=== PATIENT | female | born 2005 | race Caucasian/White ===

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

== ENCOUNTER 2025-04-25 08:06 | Emergency (ER) | payer SELFPAY ==
--- OUTSIDE RECORDS SUMMARY | 2025-04-25 08:11 | XMS_ITS | Encounter Summary ---
Author Organization [facility] Address [address] [place] [address] Care Team Providers Care Maintenance Technician 3Rd Shift Name Role Phone Chinyere Meyers DO Primary Care Provider Encounter Details Date Type Department Care Team (Late st Contact Info) Description 04/23/2025 External Device Data [facility] ABSTRACTION Provider, Abstract NO ADDRESS ON FILE Social History Tobacco Use Types Packs/Day Years Used Date Smoking Tobacco: Never Passive Smoke Exposure: Never Smokeless Tobacco: Never Alcohol Use Standard Drinks/Week Comments Never 0 (1 standard drink = 0.6 oz pur e alcohol) Comments No Sex and Gender Information Value Date Recorded Sex Assigned at Not on file 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
--- OUTSIDE RECORDS SUMMARY | 2025-04-25 08:11 | XMS_ITS | Encounter Summary ---
Author Organization [facility] Address [address] [place] [address] Care Team Providers Care Bus Monitor Name Role Phone Chinyere Meyers DO Primary Care Provider Encounter Details Date Type Department Care Team (Late st Contact Info) Description 03/11/2025 Results Follow-Up [facility] Medicine [place] [address] [place] [address] Leonel Mohan FNP [address] [place] [address] HCG QUALITATIVE, BLOOD Social History Tobacco Use Types Packs/Day Years Used Date Smoking Tobacco: Never Smokeless Tobacco: Never Alcohol Use Standard Drinks/Week Comments Never 0 (1 standard drink = 0.6 oz pur e alcohol) Comments No Sex and Gender Information Value Date Recorded Sex Assigned at Not on file 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
--- OUTSIDE RECORDS SUMMARY | 2025-04-25 08:11 | XMS_ITS | Clinical Summary ---
Author Organization [facility] Address [address] [place] [address] Care Team Providers Care Sprinkler Repair Technician Name Role Phone Chinyere Meyers Primary Care Provider [phone] Allergies No known active allergies Medications medroxyPROGEST ERone (DEPO-PROVERA) 150 mg/mL Suspension Inject 150 mg by intramuscular injection every 90 days. Active naproxen (NAPROSYN) 250 mg tabletIndicati ons:Dysmenorrh ea Take 1 Tablet (250 mg) by mouth every 8 hours as needed for Pain, Mild. 60 Tablet 1 Active Active Problems No known active problems Encounters Date Type Department Care Team Description 04/23/2025 External Device Data [facility] Provider, Abstract 04/15/2025 8:40 AM CDT Office Visit [facility] [address] [place] [address] TheresaOctober, [employer] Depression, unspecified depression type (Primary Dx); Dysmenorrhea 03/19/2025 External Device Data [facility]STRA[facility] Provider, Abstract 03/14/2025 10:40 AM CDT Office Visit [facility] [address] [place] [address] TheresaOctober, [employer] Dysmenorrhea (Primary Dx); General counseling and advice on contraceptive management 03/12/2025 External Device Data [facility]STRACTION Provider, Abstract 03/12/2025 External Device Data [facility] Provider, Abstract 03/12/2025 External Device Data [facility]STRA[facility] Provider, Abstract 03/11/2025 Results Follow-Up [facility] [address] [place] [address] Leonel Mohan FNP HCG QUALITATIVE, BLOOD 03/11/2025 Telephone [facility] [address] [place] [phone] Leonel Mohan FNP Remote Monitoring ; Patient Communication 03/08/2025 11:20 AM CDT Office Visit [facility] [address] [place] [phone] Leonel Mohan FNP Encounter for test, result unknown (Primary Dx); Nausea and vomiting, unspecified vomiting type; On Depo-Provera for contraception from Last 3 Months Immunizations Immunization Administration Dates Next Due (MENACTRA)(9 [...] Passive Smoke Exposure: Never Smokeless Tobacco: Never Tobacco Cessation:Counseling Given: No Alcohol Use Standard Drinks/Week Comments Never 0 (1 standard drink = 0.6 oz pur e alcohol) Comments No Sex and Gender Information Value Date Recorded Sex Assigned at Not on file Legal Sex Female 1:39 PM [employer]OO[employer] Gender Identity Not on file Sexual Orientation Not on file Last Filed Vital Signs Vital Sign Reading Time Taken Comments Blood Pressure 100/70 04/15/2025 8:45 AM CDT Pulse 77 04/15/2025 8:47 AM CDT Temperature 36.8 C (98.2 F) 04/15/2025 8:45 AM CDT Respiratory Rate 16 04/15/2025 8:45 AM CDT Oxygen Saturation 99% 04/15/2025 8:45 AM CDT Inhaled Oxygen Concentration - - Weight 42.7 kg (94 lb 3.2 oz) 04/15/2025 8:45 AM CDT Height 154.9 cm (5' 1 ) 04/15/2025 8:45 AM CDT Body Mass Index 17.8 04/15/2025 8:45 AM CDT Plan of Treatment Health Maintenance Due Date Last Done Comments CHLAMYDIA SCREENING (ANNUAL) 11-24 YEARS 2016 HPV VACCINES (1 - 3-dose series) 2020 DTAP/TDAP/TD VACCINES (1 - Tdap) 2024 HEPATITIS B VACCINES (1 of 3 - 19+ 3-dose series) 03/05 INFLUENZA VACCINE (#1) 2025 Procedures Procedure Name Priority Date/Time Associated Diagnosis Comments HCG QUALITATIVE, SERUM Routine 03/08/2025 Encounter for test, result unknown Nausea and vomiting, unspecified vomiting type from Last 3 Months Results * HCG QUALITATIVE, BLOOD (03/08/2025) Blood Leonel Mohan [employer] CHEMISTRY ORDERABLES Final Result EXTERNAL LAB from Last 3 Months Care Teams Sprinkler Repair Technician Relationship Specialty Start Date End Date Chinyere Meyers DO [address] [place] [address] PCP - General Family Practice 03/08/25
[2025-04-25 08:28] VITALS: BP 128/90; PULSE 83; RESP 18; TEMP 36.7; O2SAT 98
--- NOTE | 2025-04-25 08:35 | ED_ITS ---
HPI - Ear Problem General: Chief complaint: Ear Stated complaint: lump lt earlobe Time Seen by Provider: 04/25/25 08:30 History of Present Illness: 20-year-old female presents to the emerg ency room with complaints of a lump behind her left ear has been present for couple weeks she has tried to manipulate it to get it to drain and has not been able to do so. She has not had any fever sweats chills. No swelling or drainage from the area. Related Data Previous Rx's ?Medication ?Instructions ?Recorded ondansetron 4 mg disintegrating 4 mg PO Q6H PRN nausea and 12/30/24 tablet vomiting #14 tabs Allergies Allergy/AdvReac Type Severity Reaction Status Date / Time acetaminophen (From Tylenol) Allergy Unknown Verified 12/30/24 11:47 ibuprofen Allergy Unknown Verified 12/30/24 11:47 Physical Exam HENMT: OTHER: Posterior auricular inclusion cyst. No redness no erythema no induration nontender on palpation no cervical lymph nodes Course Vital Signs: Vital signs: Vital Signs Temperature 98.1 F 04/25/25 08:28 Pulse Rate 75 04/25/25 08:41 Respiratory Rate 18 04/25/25 08:28 Blood Pressure 128/90 04/25/25 08:41 Pulse Oximetry 99 04/25/25 08:41 Oxygen Delivery Me thod Room Air 04/25/25 08:28 MDM - Ear Medical Decision Making Epidermal inclusion cyst. Nonemergent condition discussed patient referred to general surgery for elective removal. Medical Records I reviewed the patient's medical records. Lab Data I reviewed the patient's lab results. No radiology studies performed this visit Discharge Plan Discharge Patient Disposition: Home Clinical Impression: Epidermal inclusion cyst Condition: Stable Prescriptions: No Action ondansetron 4 mg tablet,disintegrating 4 mg PO Q6H PRN (Reason: nausea and vomiting) Qty: 14 0RF Discharge Orders: Discharge ED (Routine); Ordered 04/25/25 Ordered By: Christopher Sanabria Referrals: Leonel Mohan FNP [Primary Care Provider] Discharge Diet: Usual diet Discharge Activity: Resume usual activity Patient Instructions: Opioid Safety, Pain Management, Patient Portal & Anisa Instructions Activity Restrictions/Additional Instructions: Thank you for choosing [facility] for your healthcare needs today. It is very important that you follow up as instructed or that you return to the Emergency Department should you have concerns or if your condition changes or worsens in any way. Emergency department visits are focused on emergent conditions, in some cases you may require further evaluation on an outpatient basis. You were seen in the emergency room with complaints of a cyst behind your left ear. This is an inclusion cyst. It is not acutely infected. This is a nonemergent condition will make a referral for you to be seen by surgery to remove the cyst. (Please note that included in your discharge packet is information concerning opioid safety and pain management. This information is given to all patients were discharged from the ER regardless of their discharge diagnosis or the medicines they usually take or are prescribed.) Print Language: Kinyarwanda Coding Level of Care Code ED Basket Operator for Wendy Fernandes
[2025-04-25 08:41] VITALS: BP 128/90; PULSE 75; O2SAT 99
--- NOTE | 2025-04-25 08:44 | DCPLANNER ---
messaged gen surg for er f/u
== END 2025-04-25 08:46 | disposition home or self-care (01) ==
PROVIDERS: Emergency Provider Family Medicine; PCP Nurse Practitioner Family
DX: L72.8 Other follicular cysts of the skin and subcutaneous tissue (principal)
CPT/HCPCS: 99281